=== PATIENT | female | born 1940 | race Caucasian/White ===

== ENCOUNTER 2017-08-30 10:41 | Inpatient (IN) | payer MEDICARE, BC ==
[2017-08-30] MEDS: Acetaminophen/HYDROcodone 325-10 MG Tab PO PRN ×4 (13:48→21:58)
[2017-08-30] MEDS: Magnesium Hydroxide 400 MG/5 ML Susp 30 ML Cup PO PRN (17:11)
[2017-08-30] MEDS: Rivaroxaban 10 MG Tab PO SCH (18:00)
[2017-08-30] MEDS: traMADol 50 MG Tab PO SCH (20:43)
[2017-08-30] MEDS: Gabapentin 100 MG Cap PO SCH (20:44)
[2017-08-30] MEDS: Lisinopril 20 MG Tab PO SCH (20:44)
[2017-08-30] MEDS: rOPINIRole 0.25 MG Tab PO SCH (20:45)
[2017-08-30] MEDS: Latanoprost 0.005% Ophth Soln 2.5 ML Bottle EYEBOTH SCH (20:49)
[2017-08-31] MEDS: Acetaminophen/HYDROcodone 325-10 MG Tab PO PRN ×4 (05:09→18:37)
[2017-08-31] MEDS: Omeprazole 20 MG Cap.CR PO SCH (07:55)
[2017-08-31] MEDS: Lisinopril 20 MG Tab PO SCH ×2 (08:04→20:11)
[2017-08-31] MEDS: Hydrochlorothiazide 12.5 MG Cap PO SCH (08:04)
[2017-08-31] MEDS: Calcium Citrate/Vitamin D3 315 MG-250 Unit Tab PO SCH (08:04)
[2017-08-31] MEDS: Sertraline 50 MG Tab PO SCH (08:05)
[2017-08-31] MEDS: traMADol 50 MG Tab PO SCH ×2 (08:14→20:09)
--- NOTE | 2017-08-31 09:04 | PCM.HP ---
H&P History of Present Illness - General Date of Service: 08/31/17 Admit Problem/Dx: Admission Diagnosis/Problem Admission Diagnosis/Problem Arthroplasty of knee Source of Information: Patient, Old Records, Provider, RN - History of Present Illness Initial Comments - Free Text/Narative: 76-year-old female admitted into correction facility/rehabilitation at [facility] patient is status post total left knee replacement Aug 27, 2017 Dr Ramirez orthopedic surgeon, [place]. Mitchell Agustin and did well preoperatively she did have acute on chronic flareup of her back pain postoperatively. Left Knee Pain Score (Numeric/FACES): 4 - Related Data Allergies/Adverse Reactions: Allergies Allergy/AdvReac Type Severity Reaction Status Date / Time rosuvastatin [From Crestor] Allergy Dizziness Verified 08/30/17 12:37 Sulfa (Sulfonamide Allergy Vomiting Verified 08/30/17 12:37 Antibiotics) Home Medications: Home Meds Calcium Carbonate/Vitamin D3 [Calcium 600 + Vit D 200] 1 each PO DAILY 08/30/17 [History] Ferrous Sulfate 325 mg PO DAILY 08/30/17 [History] Gabapentin [Neurontin] 100 mg PO BEDTIME 08/30/17 [History] Hydrochlorothiazide 12.5 mg PO DAILY 08/30/17 [History] Hydrocodone/Acetaminophen [Hydrocodon-Acetaminophn 10-325] 1 - 2 tab PO Q4H PRN 08/30/17 [History] Latanoprost [Xalatan] 2.5 ml EYEBOTH BEDTIME 08/30/17 [History] Lisinopril 20 mg PO BID 08/30/17 [History] Omeprazole 20 mg PO DAILY 08/30/17 [History] Rivaroxaban [Xarelto] 10 mg PO DAILY 08/30/17 [History] Sennosides/Docusate Sodium [Senna S Tablet] 2 tab PO DAILY 08/30/17 [History] Sertraline HCl [Zoloft] 100 mg PO DAILY 08/30/17 [History] rOPINIRole [Requip] 0.5 mg PO BEDTIME 08/30/17 [History] traMADol [Ultram] 50 mg PO Q12H 08/30/17 [History] Past Medical History HEENT History: Reports: Cataract, Glaucoma Cardiovascular History: Reports: Hypertension Gastrointestinal History: Reports: GERD Genitourinary History: Reports: Urinary Incontinence 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: Musculoskeletal History: Reports: Back Pain, Chronic, Osteoarthritis, Osteoporosis Psychiatric History: Reports: Depression Endocrine/Metabolic History: Reports: Osteoporosis - Infectious Disease History Infectious Disease History: Reports: Chicken Pox, Measles, Mumps, Shingles - Past Surgical History HEENT Surgical History: Reports: Cataract Surgery Cardiovascular Surgical History: Reports: None GI Surgical History: Reports: None Endocrine Surgical History: Reports: None Neurological Surgical History: Reports: Lumbar Spine Musculoskeletal Surgical History: Reports: Knee Replacement Social & Family History - Family History Cardiac: Reports: [place] Respiratory: Reports: None : Reports: Dialysis Musculoskeletal: Reports: Arthritis Neurological: Reports: None Psychiatric: Reports: None Oncologic: Reports: Metastatic, Other (See Below) Other Oncologic Family History: stomach - Tobacco Use Smoking Status *Q: Never Smoker Second Hand Smoke Exposure: No - Caffeine Use Caffeine Use: Reports: Coffee Caffeine Use Comment: one cup in the morning - Recreational Drug Use Recreational Drug Use: No H&P Review of Systems - Review of Systems: Review Of Systems: See Below General: Reports: Weakness, Other (Increased back pain since surgery, acute on chronic,). Denies: Fever, Decreased Appetite HEENT: Reports: No Symptoms Pulmonary: Reports: No Symptoms Cardiovascular: Reports: No Symptoms Gastrointestinal: Reports: Constipation Genitourinary: Reports: No Symptoms Musculoskeletal: Reports: Back Pain Skin: Reports: Wound Psychiatric: Denies: Confusion, Depression, Agitation Neurological: Reports: Pre-Existing Deficit, Difficulty Walking, Weakness, Gait Disturbance. Denies: Confusion, Dizziness, Headache, Numbness, Paresthesia, Tingling, Change in Speech Hematologic/Lymphatic: Reports: No Symptoms Immunologic: Reports: No Symptoms Exam - Exam Exam: See Below - Vital Signs Vital Signs: Last Vital Signs Temp 98.4 F 08/31/17 06:52 Pulse 85 08/31/17 06:52 Resp 20 08/31/17 06:52 BP 136/71 08/31/17 08:04 Pulse Ox 97 08/31/17 06:55 Weight: 167 lb 3.2 oz - Exam Quality Assessment: DVT Prophylaxis (Factor Xa inhibitor, stop date placed). No : Supplemental Oxygen General: Alert, Oriented, 4 HEENT: Mucosa Moist & [place] Neck: Supple, Trachea Midline, 2 Lungs: Clear to Auscultation, Normal Respiratory Effort Cardiovascular: Regular Rate, Regular Rhythm GI/Abdominal Exam: Soft, Non-Tender, No Organomegaly, No Distention, No Abnormal Bruit, Other (Decreased bowel tones). No: Normal Bowel Sounds, Distended (Female) Exam: Deferred Rectal (Female) Exam: Deferred Back Exam: Other (Back pain appears both SI right and left lower back, no dorsiflexion weakness, negative SLR bilaterally). No: CVA Tenderness (L), CVA Tenderness (R) Extremities: No Pedal Edema Peripheral Pulses: 2+: Radial (L), Radial (R) Skin: Warm, Dry, Intact, Wound, Incision Neurological: Normal Speech. No: Normal Gait Neuro Extensive - Mental Status: Alert, Oriented x3, Normal Mood/Affect, Normal Cognition, Memory Intact Neuro Extensive - Motor, Sensory, Reflexes: No: Normal Gait, Receptive Aphasia Psychiatric: Alert, Normal Affect, Normal Mood *Q Meaningful Use (ADM) - VTE *Q VTE Criteria *Q: - Stroke *Q Stroke Criteria *Q: - AMI *Q AMI Criteria *Q: Problem List Initiated/Reviewed/Updated: Yes Orders Last 24hrs: Active Orders 24 hr Category Date Time Status Patient Status [ADT] Routine ADT 08/30/17 12:03 Ordered Ambulate [RC] ASDIRECTED Care 08/30/17 12:03 Active Antiembolic Devices [RC] 0900,2100 Care 08/30/17 12:15 Active Oxygen Therapy [RC] Care 08/30/17 12:03 Active Up With Assistance [RC] ASDIRECTED Care 08/30/17 12:03 Active Vital Signs [RC] 0700,1500 Care 08/30/17 12:03 Active PT Evaluation and Treatment [CONS] Routine Cons 08/30/17 12:03 Active Regular Diet [DIET] Diet 08/30/17 Dinner Active Acetaminophen/HYDROcodone [[place] 325-10 MG] Med 08/30/17 12:52 Active 1 - 2 tab PO Q4H PRN Calcium Citrate/Vitamin D3 [Calcium Citrate + D] Med 08/31/17 09:00 Active 2 tab PO DAILY Docusate Sodium/Sennosides [Senna Plus] Med 08/31/17 09:00 Active 2 tab PO DAILY Ferrous Sulfate Med 08/31/17 12:00 Active 325 mg PO DAILY@1200 Gabapentin [Neurontin] Med 08/30/17 21:00 Active 100 mg PO BEDTIME Hydrochlorothiazide Med 08/31/17 09:00 Active 12.5 mg PO DAILY Latanoprost [Xalatan 0.005% Ophth Soln] Med 08/30/17 21:00 Active 0 ml EYEBOTH BEDTIME Lisinopril [Prinivil] Med 08/30/17 21:00 Active 20 mg PO BID Magnesium Hydroxide [Milk of Magnesia] Med 08/30/17 16:25 Active 30 ml PO BID PRN Omeprazole Med 08/31/17 07:30 Active 20 mg PO ACBREAKFAST Rivaroxaban [Xarelto] Med 08/30/17 18:00 Active 10 mg PO DAILY@1800 Sertraline [Zoloft] Med 08/31/17 09:00 Active 100 mg PO DAILY rOPINIRole [Requip] Med 08/30/17 21:00 Active 0.5 mg PO BEDTIME rOPINIRole [Requip] Med 08/30/17 14:33 Active 0.5 mg PO ONETIME PRN traMADol [Ultram] Med 08/30/17 21:00 Active 50 mg PO BID Antiembolic Hose [OM.PC] Routine Oth 08/30/17 12:03 Ordered Resuscitation Status Routine Resus Stat 08/30/17 12:03 Ordered Medication Orders Hydrocodone Bitart/Acetaminophen ([place] 325-10 Mg) 1 - 2 tab PO Q4H PRN PRN Reason: Pain Last Admin: 08/31/17 05:09 Dose: 2 tab Admin: 08/30/17 21:58 Dose: 2 tab Admin: 08/30/17 18:00 Dose: 1 tab Admin: 08/30/17 17:10 Dose: 1 tab Admin: 08/30/17 13:48 Dose: 1 tab Calcium Citrate (Calcium Citrate + D) 2 tab PO DAILY [facility] Last Admin: 08/31/17 08:04 Dose: 2 tab Ferrous Sulfate (Ferrous Sulfate) 325 mg PO DAILY@1200 [facility] Gabapentin (Neurontin) 100 mg PO BEDTIME [facility] Last Admin: 08/30/17 20:44 Dose: 100 mg Hydrochlorothiazide (Hydrochlorothiazide) 12.5 mg PO DAILY [facility] Last Admin: 08/31/17 08:04 Dose: 12.5 mg Latanoprost (Xalatan 0.005% Ophth Soln) 0 ml EYEBOTH BEDTIME [facility] Last Admin: 08/30/17 20:49 Dose: 1 drop Lisinopril (Prinivil) 20 mg PO BID [facility] Last Admin: 08/31/17 08:04 Dose: 20 mg Admin: 08/30/17 20:44 Dose: 20 mg Magnesium Hydroxide (Milk Of Magnesia) 30 ml PO BID PRN PRN Reason: Constipation Last Admin: 08/30/17 17:11 Dose: 30 ml Omeprazole (Omeprazole) 20 mg PO ACBREAKFAST [facility] Last Admin: 08/31/17 07:55 Dose: 20 mg Rivaroxaban (Xarelto) 10 mg PO DAILY@1800 [facility] Stop: 09/09/17 18:01 Last Admin: 08/30/17 18:00 Dose: 10 mg Ropinirole HCl (Requip) 0.5 mg PO BEDTIME [facility] Last Admin: 08/30/17 20:45 Dose: 0.5 mg Ropinirole HCl (Requip) 0.5 mg PO ONETIME PRN PRN Reason: restless leg Senna/Docusate Sodium (Senna Plus) 2 tab PO DAILY [facility] Last Admin: 08/31/17 08:05 Dose: 2 tab Sertraline HCl (Zoloft) 100 mg PO DAILY [facility] Last Admin: 08/31/17 08:05 Dose: 100 mg Tramadol HCl (Ultram) 50 mg PO BID [facility] Last Admin: 08/31/17 08:14 Dose: 50 mg Admin: 08/30/17 20:43 Dose: 50 mg Assessment/Plan Comment:: HISTORY OF PRESENT ILLNESS 76-year-old female admitted into correction facility/rehabilitation at [facility] patient is status post total left knee replacement Aug 27, 2017 Dr Ramirez orthopedic surgeon, [place]. Mitchell Agustin and did well preoperatively she did have acute on chronic flareup of her back pain postoperatively. Primary impression Total left knee replacement, DOS, 08/27/2017, PT consult for rehabilitation. Lower lumbar stenosis, acute on chronic, L2/L3, significantly impacting her ability to progress with PT due to pain. Spoke with orthopedics PA yesterday regarding this and it appears patient did have a flareup postoperatively. Acute on chronic. Ongoing monitoring for S/S Cauda equina symptoms. Negative SLR, no dorsiflexion weakness or radiculopathy at this time. No bladder or bowel dysfunction, Add scheduled acetaminophen, 5 mg Valium 1 time, NSAID ointment, Flexeril 5 mg by mouth 3 times a day starting at 1600 today. 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 Stop date placed. May benefit outpatient MANNY. Constipation prophylaxis, add Movantik, can change back to senna S upon reducing narcotics DVT prophylaxis, Factor Xa inhibitor. Stop date placed GI stress prophylaxis, add PPI Secondary impression HTN, essential, stable. Depression, stable, RLS, HLD, OA, shoulders, History of laminectomy.
[2017-08-31] MEDS ORDERED: Naloxegol Oxalate 25 MG Tab PO SCH (12:30)
[2017-08-31] MEDS ORDERED: Acetaminophen 650 MG Tab.ER PO SCH (12:30)
[2017-08-31] MEDS ORDERED: Diazepam 5 MG Tab PO ONE ×2 (12:30→21:31)
[2017-08-31] MEDS: Ferrous Sulfate 325 MG Tab PO SCH (13:24)
[2017-08-31] MEDS: predniSONE 20 MG Tab PO SCH (13:24)
[2017-08-31] MEDS: Cyclobenzaprine 5 MG Tab PO SCH ×2 (14:35→20:08)
[2017-08-31] MEDS: Ketoprofen 12 GM, Menthol 1.8 GM, Trolamine Salicylate/Aloe Vera 46.2 GM TOP PRN ×6 (14:38→22:43)
[2017-08-31] MEDS ORDERED: Morphine 4 MG/ML Syringe IM ONE (16:50)
[2017-08-31] MEDS: Rivaroxaban 10 MG Tab PO SCH (18:34)
[2017-08-31] MEDS: Gabapentin 100 MG Cap PO SCH (20:09)
[2017-08-31] MEDS: rOPINIRole 0.25 MG Tab PO SCH (20:09)
[2017-08-31] MEDS: Latanoprost 0.005% Ophth Soln 2.5 ML Bottle EYEBOTH SCH (20:11)
[2017-08-31] MEDS: oxyCODONE 5 MG Tab PO PRN (22:42)
[2017-09-01] MEDS: oxyCODONE 5 MG Tab PO PRN ×4 (04:01→23:38)
[2017-09-01] MEDS: Acetaminophen 650 MG Tab.ER PO SCH ×4 (06:11→22:06)
[2017-09-01] MEDS: Omeprazole 20 MG Cap.CR PO SCH (08:26)
[2017-09-01] MEDS: predniSONE 20 MG Tab PO SCH (08:27)
[2017-09-01] MEDS: Calcium Citrate/Vitamin D3 315 MG-250 Unit Tab PO SCH (08:31)
[2017-09-01] MEDS: Cyclobenzaprine 5 MG Tab PO SCH ×3 (08:32→20:29)
[2017-09-01] MEDS: Hydrochlorothiazide 12.5 MG Cap PO SCH (08:32)
[2017-09-01] MEDS: Sertraline 50 MG Tab PO SCH (08:33)
[2017-09-01] MEDS: traMADol 50 MG Tab PO SCH ×2 (08:38→20:30)
[2017-09-01] MEDS: Lisinopril 20 MG Tab PO SCH ×2 (08:39→20:33)
--- NOTE | 2017-09-01 11:37 | PCM.PN ---
- General Info Date of Service: 09/01/17 - Patient Data Vitals - Most Recent: Last Vital Signs Temp 37.0 C 09/01/17 06:17 Pulse 87 09/01/17 06:17 Resp 20 09/01/17 06:17 BP 140/86 09/01/17 08:39 Pulse Ox 96 09/01/17 06:17 Weight - Most Recent: 75.841 kg I&O - Last 24 Hours: Intake & Output 08/31/17 09/01/17 09/01/17 22:59 06:59 14:59 Intake Total 620 150 Output Total 1160 Balance 620 -1010 Lab Results Last 24 Hours: Laboratory Results - last 24 hr 08/31/17 09/01/17 Range/Units 23:00 07:30 WBC 7.8 (5.0-10.0) 10^3/uL RBC 2.77 L (3.80-5.50) 10^6/uL Hgb 7.6 L (12.0-16.0) g/dL Hct 24.2 L (37.0-47.0) % MCV 87.2 (82.0-92.0) fL MCH 27.5 (27.0-31.0) pg MCHC 31.5 L (32.0-36.0) g/dL RDW 13.2 (11.5-14.5) % Plt Count 211 (150-300) 10^3/uL MPV 9.0 (7.4-10.4) fL Specimen Type Urinqcath Urine Color Yellow (YELLOW) Urine Appearance Clear (CLEAR) Urine pH 5.5 (5.0-9.0) Ur Specific Bunch 1.015 (1.005-1.030) Urine Protein Negative (NEGATIVE) mg/dL Urine Glucose (UA) 250 H (NEGATIVE) mg/dL Urine Ketones Negative (NEGATIVE) mg/dL Urine Occult Blood Negative (NEGATIVE) Urine Nitrite Negative (NEGATIVE) Urine Bilirubin Negative (NEGATIVE) Urine Urobilinogen 0.2 (0.2-1.0) E.U./dL Ur Leukocyte Esterase Negative (NEGATIVE) Urine RBC 0-5 /HPF Urine WBC 0-5 /HPF Ur Epithelial Cells Few /LPF Urine Bacteria Few (NONE TO FEW) /HPF Med Orders - Current: Current Medications Acetaminophen (Tylenol Arthritis Pain) 650 mg PO Q6HR [facility] Last Admin: 09/01/17 10:53 Dose: 650 mg Calcium Citrate (Calcium Citrate + D) 2 tab PO DAILY [facility] Last Admin: 09/01/17 08:31 Dose: 2 tab Ketoprofen 12 gm/ Menthol 1.8 gm/ Trolamine Salicylate 46.2 gm 0 gm TOP Q6HR PRN PRN Reason: back pain Last Admin: 08/31/17 22:43 Dose: 1 tim Cyclobenzaprine HCl (Flexeril) 5 mg PO TID [facility] Stop: 09/03/17 09:01 Last Admin: 09/01/17 08:32 Dose: 5 mg Ferrous Sulfate (Ferrous Sulfate) 325 mg PO DAILY@1200 [facility] Last Admin: 08/31/17 13:24 Dose: 325 mg Gabapentin (Neurontin) 100 mg PO BEDTIME [facility] Last Admin: 08/31/17 20:09 Dose: 100 mg Hydrochlorothiazide (Hydrochlorothiazide) 12.5 mg PO DAILY [facility] Last Admin: 09/01/17 08:32 Dose: 12.5 mg Latanoprost (Xalatan 0.005% Ophth Soln) 0 ml EYEBOTH BEDTIME [facility] Last Admin: 08/31/17 20:11 Dose: 1 drop Lisinopril (Prinivil) 20 mg PO BID [facility] Last Admin: 09/01/17 08:39 Dose: 20 mg Magnesium Hydroxide (Milk Of Magnesia) 30 ml PO BID PRN PRN Reason: Constipation Last Admin: 08/30/17 17:11 Dose: 30 ml Omeprazole (Omeprazole) 20 mg PO ACBREAKFAST [facility] Last Admin: 09/01/17 08:26 Dose: 20 mg Oxycodone HCl (Oxycodone) 5 - 15 mg PO Q4H PRN PRN Reason: Pain Last Admin: 09/01/17 04:01 Dose: 10 mg Rivaroxaban (Xarelto) 10 mg PO DAILY@1800 [facility] Stop: 09/09/17 18:01 Last Admin: 08/31/17 18:34 Dose: 10 mg Ropinirole HCl (Requip) 0.5 mg PO BEDTIME [facility] Last Admin: 08/31/17 20:09 Dose: 0.5 mg Ropinirole HCl (Requip) 0.5 mg PO ONETIME PRN PRN Reason: restless leg Senna/Docusate Sodium (Senna Plus) 2 tab PO DAILY [facility] Last Admin: 09/01/17 09:20 Dose: 2 tab Sertraline HCl (Zoloft) 100 mg PO DAILY [facility] Last Admin: 09/01/17 08:33 Dose: 100 mg Tramadol HCl (Ultram) 50 mg PO BID [facility] Last Admin: 09/01/17 08:38 Dose: 50 mg Discontinued Medications Acetaminophen (Tylenol Arthritis Pain) 650 mg PO Q8HR [facility] Last Admin: 08/31/17 14:30 Dose: Not Given Hydrocodone Bitart/Acetaminophen ([place] 325-10 Mg) 1 - 2 tab PO Q4H PRN PRN Reason: Pain Last Admin: 08/31/17 18:37 Dose: 2 tab Diazepam (Valium.) 5 mg PO ONETIME ONE Stop: 08/31/17 12:31 Last Admin: 08/31/17 13:24 Dose: 5 mg Diazepam (Valium.) 5 mg PO ONETIME ONE Stop: 08/31/17 21:32 Last Admin: 08/31/17 21:52 Dose: 5 mg Morphine Sulfate (Morphine) 4 mg IM ONETIME ONE Stop: 08/31/17 16:51 Last Admin: 08/31/17 17:16 Dose: 4 mg Prednisone (Prednisone) 40 mg PO WITHBREAKFAST [facility] Stop: 09/02/17 12:31 Last Admin: 09/01/17 08:27 Dose: 40 mg - My Orders Last 24 Hours: My Active Orders 08/31/17 21:25 oxyCODONE 5 - 15 mg PO Q4H PRN 08/31/17 23:00 CULTURE URINE [RM] Routine 09/01/17 06:00 Acetaminophen [Tylenol Arthritis Pain] 650 mg PO Q6HR 09/02/17 05:11 HEMOGLOBIN/HEMATOCRIT,HH [HEME] AM - Plan Plan:: HISTORY OF PRESENT ILLNESS 76-year-old female admitted into correction facility/rehabilitation at [facility] patient is status post total left knee replacement Aug 27, 2017 Dr Ramirez orthopedic surgeon, [place]. Mitchell Agustin and did well preoperatively she did have acute on chronic flareup of her back pain postoperatively. Primary impression Total left knee replacement, DOS, 08/27/2017, PT consult for rehabilitation. Lower lumbar stenosis, acute on chronic, L2/L3, significantly impacting her ability to progress with PT due to pain. Spoke with orthopedics PA yesterday regarding this and it appears patient did have a flareup postoperatively. Acute on chronic. Ongoing monitoring for S/S Cauda equina symptoms. Negative SLR, no dorsiflexion weakness or radiculopathy at this time. No bladder or bowel dysfunction, Add scheduled acetaminophen, 5 mg Valium 1 time, NSAID ointment, Flexeril 5 mg by mouth 3 times a day starting at 1600 today. 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 Stop date placed. May benefit outpatient MANNY. Constipation prophylaxis, add Movantik, can change back to senna S upon reducing narcotics DVT prophylaxis, Factor Xa inhibitor. Stop date placed GI stress prophylaxis, add PPI Secondary impression HTN, essential, stable. Depression, stable, RLS, HLD, OA, shoulders, History of laminectomy.
[2017-09-01] MEDS: Ferrous Sulfate 325 MG Tab PO SCH (12:00)
[2017-09-01] MEDS: Ketoprofen 12 GM, Menthol 1.8 GM, Trolamine Salicylate/Aloe Vera 46.2 GM TOP PRN ×6 (13:58→22:07)
[2017-09-01] MEDS: Rivaroxaban 10 MG Tab PO SCH (18:21)
[2017-09-01] MEDS: rOPINIRole 0.25 MG Tab PO SCH (20:29)
[2017-09-01] MEDS: Gabapentin 100 MG Cap PO SCH (20:29)
[2017-09-01] MEDS: Latanoprost 0.005% Ophth Soln 2.5 ML Bottle EYEBOTH SCH (20:30)
[2017-09-02] MEDS: Acetaminophen 650 MG Tab.ER PO SCH ×4 (05:38→23:50)
[2017-09-02] MEDS: Omeprazole 20 MG Cap.CR PO SCH (07:49)
[2017-09-02] MEDS: Cyclobenzaprine 5 MG Tab PO SCH ×3 (08:35→20:33)
[2017-09-02] MEDS: traMADol 50 MG Tab PO SCH ×2 (08:35→20:34)
[2017-09-02] MEDS: Lisinopril 20 MG Tab PO SCH ×2 (08:36→20:33)
[2017-09-02] MEDS: Hydrochlorothiazide 12.5 MG Cap PO SCH (08:36)
[2017-09-02] MEDS: Sertraline 50 MG Tab PO SCH (08:37)
[2017-09-02] MEDS: Calcium Citrate/Vitamin D3 315 MG-250 Unit Tab PO SCH (08:37)
[2017-09-02] MEDS: Ferrous Sulfate 325 MG Tab PO SCH (11:55)
[2017-09-02] MEDS: oxyCODONE 5 MG Tab PO PRN ×2 (14:29→19:43)
[2017-09-02] MEDS: Gabapentin 100 MG Cap PO SCH ×2 (14:29→20:33)
[2017-09-02] MEDS: Rivaroxaban 10 MG Tab PO SCH (17:22)
[2017-09-02] MEDS: rOPINIRole 0.25 MG Tab PO PRN (17:22)
[2017-09-02] MEDS: Melatonin 3 MG Tab PO SCH (20:33)
[2017-09-02] MEDS: rOPINIRole 0.25 MG Tab PO SCH (20:34)
[2017-09-02] MEDS: Latanoprost 0.005% Ophth Soln 2.5 ML Bottle EYEBOTH SCH (20:36)
[2017-09-03] MEDS: oxyCODONE 5 MG Tab PO PRN ×5 (00:09→21:41)
[2017-09-03] MEDS: Acetaminophen 650 MG Tab.ER PO SCH ×5 (05:30→22:26)
[2017-09-03] MEDS: rOPINIRole 0.25 MG Tab PO PRN (06:17)
[2017-09-03] MEDS: Omeprazole 20 MG Cap.CR PO SCH (07:37)
[2017-09-03] MEDS: Calcium Citrate/Vitamin D3 315 MG-250 Unit Tab PO SCH (08:36)
[2017-09-03] MEDS: Hydrochlorothiazide 12.5 MG Cap PO SCH (08:37)
[2017-09-03] MEDS: traMADol 50 MG Tab PO SCH ×2 (08:37→20:40)
[2017-09-03] MEDS: Gabapentin 100 MG Cap PO SCH ×3 (08:37→20:40)
[2017-09-03] MEDS: Cyclobenzaprine 5 MG Tab PO SCH (08:37)
[2017-09-03] MEDS: Sertraline 50 MG Tab PO SCH (08:37)
[2017-09-03] MEDS: Lisinopril 20 MG Tab PO SCH ×2 (08:39→20:39)
[2017-09-03] MEDS: Ferrous Sulfate 325 MG Tab PO SCH (11:40)
[2017-09-03] MEDS: Ketoprofen 12 GM, Menthol 1.8 GM, Trolamine Salicylate/Aloe Vera 46.2 GM TOP PRN ×6 (11:42→20:37)
[2017-09-03] MEDS: Magnesium Hydroxide 400 MG/5 ML Susp 30 ML Cup PO PRN (16:33)
[2017-09-03] MEDS: Rivaroxaban 10 MG Tab PO SCH (17:25)
[2017-09-03] MEDS: rOPINIRole 0.25 MG Tab PO SCH (20:40)
[2017-09-03] MEDS: Melatonin 3 MG Tab PO SCH (20:40)
[2017-09-03] MEDS: Latanoprost 0.005% Ophth Soln 2.5 ML Bottle EYEBOTH SCH (20:40)
[2017-09-04] MEDS: Acetaminophen 650 MG Tab.ER PO SCH ×4 (05:57→23:03)
[2017-09-04] MEDS: oxyCODONE 5 MG Tab PO PRN ×3 (06:32→19:27)
[2017-09-04] MEDS: Omeprazole 20 MG Cap.CR PO SCH (07:40)
[2017-09-04] MEDS: Calcium Citrate/Vitamin D3 315 MG-250 Unit Tab PO SCH (08:52)
[2017-09-04] MEDS: Hydrochlorothiazide 12.5 MG Cap PO SCH (08:52)
[2017-09-04] MEDS: Lisinopril 20 MG Tab PO SCH ×2 (08:52→21:06)
[2017-09-04] MEDS: Gabapentin 100 MG Cap PO SCH ×3 (08:52→21:08)
[2017-09-04] MEDS: Sertraline 50 MG Tab PO SCH (08:53)
[2017-09-04] MEDS: Ketoprofen 12 GM, Menthol 1.8 GM, Trolamine Salicylate/Aloe Vera 46.2 GM TOP PRN ×6 (08:54→17:30)
[2017-09-04] MEDS: traMADol 50 MG Tab PO SCH ×2 (09:00→21:06)
[2017-09-04] MEDS: Ferrous Sulfate 325 MG Tab PO SCH (12:31)
[2017-09-04] MEDS: Bisacodyl 10 MG Supp RECTAL PRN (15:31)
[2017-09-04] MEDS: rOPINIRole 0.25 MG Tab PO PRN (17:28)
[2017-09-04] MEDS: Rivaroxaban 10 MG Tab PO SCH (17:28)
[2017-09-04] MEDS: rOPINIRole 0.25 MG Tab PO SCH (21:05)
[2017-09-04] MEDS: Melatonin 3 MG Tab PO SCH (21:08)
[2017-09-04] MEDS: Latanoprost 0.005% Ophth Soln 2.5 ML Bottle EYEBOTH SCH (21:11)
[2017-09-05] MEDS: Acetaminophen 650 MG Tab.ER PO SCH ×4 (04:43→22:17)
[2017-09-05] MEDS: oxyCODONE 5 MG Tab PO PRN ×2 (06:32→13:08)
[2017-09-05] MEDS: Omeprazole 20 MG Cap.CR PO SCH (07:49)
[2017-09-05] MEDS: Calcium Citrate/Vitamin D3 315 MG-250 Unit Tab PO SCH (08:06)
[2017-09-05] MEDS: Gabapentin 100 MG Cap PO SCH ×3 (08:06→20:24)
[2017-09-05] MEDS: Sertraline 50 MG Tab PO SCH (08:07)
[2017-09-05] MEDS: Lisinopril 20 MG Tab PO SCH ×2 (08:08→20:24)
[2017-09-05] MEDS: Hydrochlorothiazide 12.5 MG Cap PO SCH (08:09)
[2017-09-05] MEDS: traMADol 50 MG Tab PO SCH ×2 (08:14→20:24)
--- NOTE | 2017-09-05 09:30 | PCM.PN ---
- General Info Date of Service: 09/05/17 Functional Status: Reports: Pain Controlled (Much better pain control), Tolerating Diet, Ambulating, Urinating (Catheter removed this morning. ), Incentive Spirometry. Denies: New Symptoms - Review of Systems General: Denies: Fever, Weakness, Fatigue HEENT: Reports: No Symptoms Pulmonary: Reports: No Symptoms Cardiovascular: Reports: No Symptoms Gastrointestinal: Denies: Abdominal Pain, Constipation, Decreased Appetite, Nausea Genitourinary: Reports: Other (Indwelling Hernandez catheter removed this morning) Musculoskeletal: Reports: Joint Pain, Joint Swelling (Left knee pain however much improved). Denies: Back Pain Skin: Reports: Bruising (Bruising left knee surrounding by an calf) Neurological: Reports: Difficulty Walking, Gait Disturbance. Denies: Numbness Psychiatric: Reports: No Symptoms - Patient Data Vitals - Most Recent: Last Vital Signs Temp 98.2 F 09/05/17 06:50 Pulse 90 09/05/17 06:50 Resp 20 09/05/17 06:50 BP 133/85 09/05/17 08:08 Pulse Ox 93 L 09/05/17 06:50 Weight - Most Recent: 167 lb 3.2 oz I&O - Last 24 Hours: Intake & Output 09/04/17 09/05/17 09/05/17 22:59 06:59 14:59 Intake Total 620 150 Output Total 775 600 Balance -155 -450 Med Orders - Current: Current Medications Acetaminophen (Tylenol Arthritis Pain) 650 mg PO Q6HR [facility] Last Admin: 09/05/17 04:43 Dose: 650 mg Bisacodyl (Dulcolax) 10 mg RECTAL DAILY PRN PRN Reason: Constipation Last Admin: 09/04/17 15:31 Dose: 10 mg Calcium Citrate (Calcium Citrate + D) 2 tab PO DAILY [facility] Last Admin: 09/05/17 08:06 Dose: 2 tab Ketoprofen 12 gm/ Menthol 1.8 gm/ Trolamine Salicylate 46.2 gm 0 gm TOP Q6HR PRN PRN Reason: back pain Last Admin: 09/04/17 17:30 Dose: 1 tim Ferrous Sulfate (Ferrous Sulfate) 325 mg PO DAILY@1200 [facility] Last Admin: 09/04/17 12:31 Dose: 325 mg Gabapentin (Neurontin) 100 mg PO TID [facility] Last Admin: 09/05/17 08:06 Dose: 100 mg Hydrochlorothiazide (Hydrochlorothiazide) 12.5 mg PO DAILY [facility] Last Admin: 09/05/17 08:09 Dose: 12.5 mg Latanoprost (Xalatan 0.005% Ophth Soln) 0 ml EYEBOTH BEDTIME [facility] Last Admin: 09/04/17 21:11 Dose: 1 drop Lisinopril (Prinivil) 20 mg PO BID [facility] Last Admin: 09/05/17 08:08 Dose: 20 mg Magnesium Hydroxide (Milk Of Magnesia) 30 ml PO BID PRN PRN Reason: Constipation Last Admin: 09/03/17 16:33 Dose: 30 ml Melatonin (Melatonin) 3 mg PO BEDTIME [facility] Last Admin: 09/04/17 21:08 Dose: 3 mg Omeprazole (Omeprazole) 20 mg PO ACBREAKFAST [facility] Last Admin: 09/05/17 07:49 Dose: 20 mg Oxycodone HCl (Oxycodone) 5 - 15 mg PO Q4H PRN PRN Reason: Pain Last Admin: 09/05/17 06:32 Dose: 5 mg Rivaroxaban (Xarelto) 10 mg PO DAILY@1800 [facility] Stop: 09/09/17 18:01 Last Admin: 09/04/17 17:28 Dose: 10 mg Ropinirole HCl (Requip) 0.5 mg PO BEDTIME [facility] Last Admin: 09/04/17 21:05 Dose: 0.5 mg Ropinirole HCl (Requip) 0.5 mg PO ONETIME PRN PRN Reason: restless leg Last Admin: 09/04/17 17:28 Dose: 0.5 mg Senna/Docusate Sodium (Senna Plus) 2 tab PO DAILY [facility] Last Admin: 09/05/17 08:07 Dose: 2 tab Sertraline HCl (Zoloft) 100 mg PO DAILY [facility] Last Admin: 09/05/17 08:07 Dose: 100 mg Tramadol HCl (Ultram) 50 mg PO BID [facility] Last Admin: 09/05/17 08:14 Dose: 50 mg Discontinued Medications Acetaminophen (Tylenol Arthritis Pain) 650 mg PO Q8HR [facility] Last Admin: 08/31/17 14:30 Dose: Not Given Hydrocodone Bitart/Acetaminophen ([place] 325-10 Mg) 1 - 2 tab PO Q4H PRN PRN Reason: Pain Last Admin: 08/31/17 18:37 Dose: 2 tab Cyclobenzaprine HCl (Flexeril) 5 mg PO TID [facility] Stop: 09/03/17 09:01 Last Admin: 09/03/17 08:37 Dose: 5 mg Diazepam (Valium.) 5 mg PO ONETIME ONE Stop: 08/31/17 12:31 Last Admin: 08/31/17 13:24 Dose: 5 mg Diazepam (Valium.) 5 mg PO ONETIME ONE Stop: 08/31/17 21:32 Last Admin: 08/31/17 21:52 Dose: 5 mg Gabapentin (Neurontin) 100 mg PO BEDTIME [facility] Last Admin: 09/01/17 20:29 Dose: 100 mg Morphine Sulfate (Morphine) 4 mg IM ONETIME ONE Stop: 08/31/17 16:51 Last Admin: 08/31/17 17:16 Dose: 4 mg Prednisone (Prednisone) 40 mg PO WITHBREAKFAST [facility] Stop: 09/02/17 12:31 Last Admin: 09/01/17 08:27 Dose: 40 mg - Exam Quality Assessment: No: Supplemental Oxygen General: Alert, Oriented, Cooperative Neck: Supple Cardiovascular: Regular Rate, Tachycardia GI/Abdominal Exam: Soft, Other (Slightly decreased bowel tones). No: Distended , Guarding (Female) Exam: Deferred Extremities: Other (Left knee, [place] intact, generalized swelling, bruising left lower extremity since surgery, on factor X inhibitor). No: Increased Warmth, Redness Skin: Warm, Dry, Intact Wound/Incisions: Healing Well, No Drainage Neurological: Normal Speech. No: Normal Gait Psy/Mental Status: Alert, Normal Affect, Normal Mood - Problem List Review Problem List Initiated/Reviewed/Updated: Yes - My Orders Last 24 Hours: My Active Orders 09/04/17 23:30 DC Hernandez Catheter [Urinary Catheter Removal] [RC] Per Unit Routine - Plan Plan:: HISTORY OF PRESENT ILLNESS 76-year-old female admitted into intermediate facility/rehabilitation at [facility] patient is status post total left knee replacement Aug 27, 2017 Dr Ramirez orthopedic surgeon, [place]. Mitchell Agustin and did well preoperatively she did have acute on chronic flareup of her back pain postoperatively. Primary impression Total left knee replacement, DOS, 08/27/2017, doing well in physical therapy. Follow-up schedule, staple removal in future. Acute urinary retention, Hernandez catheter removed, we'll see how she does with trial Lower back pain, much improved, on admission patient had acute on chronic, L2/L3 , significantly impacting her ability to progress with PT due to pain. MME past 24 hours. Constipation prophylaxis, senna S DVT prophylaxis, Factor Xa inhibitor. Stop date placed GI stress prophylaxis, add PPI Secondary impression HTN, essential, stable. Depression, stable, RLS, HLD, OA, shoulders, History of laminectomy.
[2017-09-05] MEDS: Ferrous Sulfate 325 MG Tab PO SCH (13:07)
[2017-09-05] MEDS: Ketoprofen 12 GM, Menthol 1.8 GM, Trolamine Salicylate/Aloe Vera 46.2 GM TOP PRN ×3 (16:16)
[2017-09-05] MEDS: Rivaroxaban 10 MG Tab PO SCH (18:11)
[2017-09-05] MEDS: rOPINIRole 0.25 MG Tab PO SCH ×2 (19:48→20:24)
[2017-09-05] MEDS: Melatonin 3 MG Tab PO SCH (20:23)
[2017-09-05] MEDS: Latanoprost 0.005% Ophth Soln 2.5 ML Bottle EYEBOTH SCH (20:24)
[2017-09-05] MEDS: rOPINIRole 0.25 MG Tab PO PRN (22:19)
[2017-09-06] MEDS: oxyCODONE 5 MG Tab PO PRN ×4 (01:30→19:18)
[2017-09-06] MEDS: Acetaminophen 650 MG Tab.ER PO SCH ×4 (05:12→22:42)
[2017-09-06] MEDS: Omeprazole 20 MG Cap.CR PO SCH (08:25)
[2017-09-06] MEDS: Calcium Citrate/Vitamin D3 315 MG-250 Unit Tab PO SCH (08:26)
[2017-09-06] MEDS: Gabapentin 100 MG Cap PO SCH ×3 (08:27→20:27)
[2017-09-06] MEDS: Hydrochlorothiazide 12.5 MG Cap PO SCH (08:27)
[2017-09-06] MEDS: Sertraline 50 MG Tab PO SCH (08:28)
[2017-09-06] MEDS: Lisinopril 20 MG Tab PO SCH ×2 (08:28→20:27)
[2017-09-06] MEDS: traMADol 50 MG Tab PO SCH ×2 (08:32→20:26)
[2017-09-06] MEDS: Ferrous Sulfate 325 MG Tab PO SCH (12:02)
[2017-09-06] MEDS: Rivaroxaban 10 MG Tab PO SCH (17:17)
[2017-09-06] MEDS: Melatonin 3 MG Tab PO SCH (20:27)
[2017-09-06] MEDS: rOPINIRole 0.25 MG Tab PO SCH (20:27)
[2017-09-06] MEDS: Latanoprost 0.005% Ophth Soln 2.5 ML Bottle EYEBOTH SCH (20:27)
[2017-09-07] MEDS: oxyCODONE 5 MG Tab PO PRN ×4 (00:46→19:57)
[2017-09-07] MEDS: Acetaminophen 650 MG Tab.ER PO SCH ×4 (06:00→22:11)
[2017-09-07] MEDS: traMADol 50 MG Tab PO SCH ×2 (08:04→20:09)
[2017-09-07] MEDS: Hydrochlorothiazide 12.5 MG Cap PO SCH (08:05)
[2017-09-07] MEDS: Calcium Citrate/Vitamin D3 315 MG-250 Unit Tab PO SCH (08:05)
[2017-09-07] MEDS: Omeprazole 20 MG Cap.CR PO SCH (08:05)
[2017-09-07] MEDS: Gabapentin 100 MG Cap PO SCH ×3 (08:05→20:03)
[2017-09-07] MEDS: Sertraline 50 MG Tab PO SCH (08:06)
[2017-09-07] MEDS: Lisinopril 20 MG Tab PO SCH ×2 (08:08→20:03)
[2017-09-07] MEDS: Ferrous Sulfate 325 MG Tab PO SCH (12:06)
[2017-09-07] MEDS: rOPINIRole 0.25 MG Tab PO PRN (15:45)
[2017-09-07] MEDS: Rivaroxaban 10 MG Tab PO SCH (18:13)
[2017-09-07] MEDS: Melatonin 3 MG Tab PO SCH (20:03)
[2017-09-07] MEDS: rOPINIRole 0.25 MG Tab PO SCH (20:06)
[2017-09-07] MEDS: Latanoprost 0.005% Ophth Soln 2.5 ML Bottle EYEBOTH SCH (20:10)
[2017-09-08] MEDS: oxyCODONE 5 MG Tab PO PRN ×3 (01:57→22:07)
[2017-09-08] MEDS: Magnesium Hydroxide 400 MG/5 ML Susp 30 ML Cup PO PRN ×2 (01:59→18:13)
[2017-09-08] MEDS: Acetaminophen 650 MG Tab.ER PO SCH ×4 (06:54→22:02)
[2017-09-08] MEDS: Omeprazole 20 MG Cap.CR PO SCH (07:51)
[2017-09-08] MEDS: Sertraline 50 MG Tab PO SCH (08:36)
[2017-09-08] MEDS: Gabapentin 100 MG Cap PO SCH ×3 (08:36→20:07)
[2017-09-08] MEDS: Calcium Citrate/Vitamin D3 315 MG-250 Unit Tab PO SCH (08:37)
[2017-09-08] MEDS: Hydrochlorothiazide 12.5 MG Cap PO SCH (08:38)
[2017-09-08] MEDS: Lisinopril 20 MG Tab PO SCH ×2 (08:39→20:08)
[2017-09-08] MEDS: traMADol 50 MG Tab PO SCH ×3 (08:45→19:46)
[2017-09-08] MEDS: Ferrous Sulfate 325 MG Tab PO SCH (11:59)
[2017-09-08] MEDS: Bisacodyl 10 MG Supp RECTAL PRN (15:45)
[2017-09-08] MEDS: Rivaroxaban 10 MG Tab PO SCH (18:13)
[2017-09-08] MEDS: Melatonin 3 MG Tab PO SCH (20:06)
[2017-09-08] MEDS: rOPINIRole 0.25 MG Tab PO SCH (20:07)
[2017-09-08] MEDS: Latanoprost 0.005% Ophth Soln 2.5 ML Bottle EYEBOTH SCH (20:08)
[2017-09-08] MEDS: Ketoprofen 12 GM, Menthol 1.8 GM, Trolamine Salicylate/Aloe Vera 46.2 GM TOP PRN ×3 (20:09)
[2017-09-09] MEDS: traMADol 50 MG Tab PO SCH ×5 (03:25→23:43)
[2017-09-09] MEDS: Acetaminophen 650 MG Tab.ER PO SCH ×4 (06:13→23:43)
[2017-09-09] MEDS: Omeprazole 20 MG Cap.CR PO SCH (07:38)
[2017-09-09] MEDS: Calcium Citrate/Vitamin D3 315 MG-250 Unit Tab PO SCH (10:03)
[2017-09-09] MEDS: Gabapentin 100 MG Cap PO SCH ×3 (10:04→20:16)
[2017-09-09] MEDS: Lisinopril 20 MG Tab PO SCH ×2 (10:04→20:17)
[2017-09-09] MEDS: Hydrochlorothiazide 12.5 MG Cap PO SCH (10:04)
[2017-09-09] MEDS: Sertraline 50 MG Tab PO SCH (10:15)
[2017-09-09] MEDS: oxyCODONE 5 MG Tab PO PRN ×2 (10:18→20:21)
[2017-09-09] MEDS: Ferrous Sulfate 325 MG Tab PO SCH (12:08)
[2017-09-09] MEDS: Polyethylene Glycol 3350 Powder 17 GM Packet PO SCH (12:12)
[2017-09-09] MEDS: Phenazopyridine 100 MG Tab PO PRN ×2 (12:23→20:23)
[2017-09-09] MEDS: cefTRIAXone 1 GM Vial IVPUSH SCH (12:24)
[2017-09-09] MEDS: rOPINIRole 0.25 MG Tab PO PRN (13:49)
[2017-09-09] MEDS: Rivaroxaban 10 MG Tab PO SCH (17:40)
[2017-09-09] MEDS: Melatonin 3 MG Tab PO SCH (20:16)
[2017-09-09] MEDS: rOPINIRole 0.25 MG Tab PO SCH (20:17)
[2017-09-09] MEDS: Latanoprost 0.005% Ophth Soln 2.5 ML Bottle EYEBOTH SCH (20:18)
[2017-09-10] MEDS: Acetaminophen 650 MG Tab.ER PO SCH ×4 (04:45→23:08)
[2017-09-10] MEDS: oxyCODONE 5 MG Tab PO PRN (04:45)
[2017-09-10] MEDS: traMADol 50 MG Tab PO SCH ×4 (06:21→23:08)
[2017-09-10] MEDS: Omeprazole 20 MG Cap.CR PO SCH (07:57)
[2017-09-10] MEDS: Calcium Citrate/Vitamin D3 315 MG-250 Unit Tab PO SCH (09:23)
[2017-09-10] MEDS: Lisinopril 20 MG Tab PO SCH ×2 (09:25→20:20)
[2017-09-10] MEDS: Hydrochlorothiazide 12.5 MG Cap PO SCH (09:26)
[2017-09-10] MEDS: Gabapentin 100 MG Cap PO SCH ×3 (09:27→20:20)
[2017-09-10] MEDS: Sertraline 50 MG Tab PO SCH (09:28)
[2017-09-10] MEDS: Polyethylene Glycol 3350 Powder 17 GM Packet PO SCH (09:38)
[2017-09-10] MEDS: Phenazopyridine 100 MG Tab PO PRN (09:39)
--- NOTE | 2017-09-10 10:57 | PN ---
09/10/2017 PATIENT NAME: RORO RUSSELL SUBJECTIVE: This is a 77-year-old female patient who underwent a left total knee replacement by Dr. Ramirez back on August 27. She was sent here for swing bed and rehabilitation. Today, she states that her pain is much better. She says her back pain is better today. She says her bruising to her left knee is much better than it is. She says the knee is doing okay with therapy. She says she is scheduled for physical therapy this morning at 10:00 a.m. She says as far as her knee, the knee has been doing really well. She has been having some low back pain, but she thinks that may be from her bladder infection that she has. She says her appetite has been fine. OBJECTIVE: VITAL SIGNS: Today, temperature is 99.5, pulse is 89, blood pressure is 152/87, respiratory rate is 20, oxygen saturations are 95% on room air. GENERAL: This is an elderly white female in no acute distress. LUNGS: Sounds are clear in upper lobes, slightly diminished at bilateral bases. ABDOMEN: Soft, nontender, nondistended. Bowel sounds present x4. HEART: Tones are regular rate and rhythm. No murmurs identified. EXTREMITIES: The patient does have some bruising to her left knee area and left lower leg, seems to be improving. There is no erythema or warmth to the touch. Knee is slightly swollen. Sanger are intact. LABORATORY DATA: The patient did not have any lab work drawn today. The patient's urinalysis from yesterday showed many bacteria. IMPRESSION AND PLAN: 1. Left total knee replacement. Plan, the patient had her left total knee done by Dr. Ramirez back on the 27 of August. She has been doing well. Maddi are intact. She does have appointment on Sunday with Dr. Ramirez. Due to weather, we may just remove the maddi here and cancel her appointment. She has a physical therapy this morning at 10:00 a.m. She does have many medications for pain. 2. Urinary tract infection with urinary retention. Plan, the patient's Hernandez catheter was discontinued yesterday. The patient is on Urecholine 10 mg twice a day for urinary retention. The patient's urinalysis yesterday showed many bacteria. The patient was started on Rocephin 1 g IV daily. She has been afebrile. She does have some Pyridium, she can have every 8 hours 200 mg as needed for burning with urination. She says she feels better today. 3. Constipation. Plan, we are going to continue with MiraLAX 17 g daily. She does have milk of magnesia that she can have as needed. We will also continue with Susan-Colace two tabs daily. She also has a Dulcolax suppository she can have as needed for constipation. 4. Anemia. Plan, continue with ferrous sulfate 325 mg daily. Her last hemoglobin was stable at 8.7. We will recheck that here in a few days to see how it is improving. 5. Pain. Plan, continue with gabapentin 100 mg three times a day along with tramadol 50 mg every 6 hours scheduled. She also does have some oxycodone that she can have every 4 hours for pain. She also has some Dr. Armstrong's analgesic rub that she can have as needed for pain. She can have Tylenol as needed for pain. 6. Hypertension. Plan, the patient's blood pressures have been well controlled. We will continue with HCTZ 12.5 mg daily along with lisinopril 20 mg twice a day. 7. Insomnia. Plan, continue with melatonin 3 mg at bedtime. 8. History of gastroesophageal reflux disease. Plan, continue with omeprazole 20 mg daily in the morning prior to breakfast. 9. History of restless legs syndrome. Plan, continue with Requip 0.5 mg at bedtime. 10.History of depression. Plan, continue with Zoloft 100 mg daily. OVERALL PLAN: The patient seems to be improving. She does have a urinary tract infection that were treated at this time. We will continue to have her work with physical therapy. /[id number]/MODL
[2017-09-10] MEDS: cefTRIAXone 1 GM Vial IVPUSH SCH (11:51)
[2017-09-10] MEDS: Ferrous Sulfate 325 MG Tab PO SCH (11:52)
[2017-09-10] MEDS: rOPINIRole 0.25 MG Tab PO PRN (15:17)
[2017-09-10] MEDS: Magnesium Hydroxide 400 MG/5 ML Susp 30 ML Cup PO PRN (16:18)
[2017-09-10] MEDS: Latanoprost 0.005% Ophth Soln 2.5 ML Bottle EYEBOTH SCH (20:19)
[2017-09-10] MEDS: Melatonin 3 MG Tab PO SCH (20:20)
[2017-09-10] MEDS: rOPINIRole 0.25 MG Tab PO SCH (20:21)
[2017-09-11] MEDS: Acetaminophen 650 MG Tab.ER PO SCH ×4 (04:35→23:24)
[2017-09-11] MEDS: traMADol 50 MG Tab PO SCH ×4 (05:31→23:24)
[2017-09-11] MEDS: Phenazopyridine 100 MG Tab PO PRN (05:46)
[2017-09-11] MEDS: Omeprazole 20 MG Cap.CR PO SCH (07:46)
[2017-09-11] MEDS: Calcium Citrate/Vitamin D3 315 MG-250 Unit Tab PO SCH (08:30)
[2017-09-11] MEDS: Lisinopril 20 MG Tab PO SCH ×2 (08:33→21:13)
[2017-09-11] MEDS: Gabapentin 100 MG Cap PO SCH ×3 (08:34→21:13)
[2017-09-11] MEDS: Hydrochlorothiazide 12.5 MG Cap PO SCH (08:34)
[2017-09-11] MEDS: Sertraline 50 MG Tab PO SCH (08:36)
[2017-09-11] MEDS: Polyethylene Glycol 3350 Powder 17 GM Packet PO SCH (10:21)
[2017-09-11] MEDS ORDERED: rOPINIRole 1 MG Tab PO PRN (11:53)
[2017-09-11] MEDS: cefTRIAXone 1 GM Vial IVPUSH SCH (12:31)
[2017-09-11 12:32] LABS: CHLORIDE,CL 96 mmol/L (98-115); SODIUM,NA 133 mmol/L (136-145)
[2017-09-11] MEDS: Ferrous Sulfate 325 MG Tab PO SCH (12:32)
[2017-09-11] MEDS: Phenazopyridine 100 MG Tab PO SCH ×3 (13:06→21:12)
[2017-09-11] MEDS ORDERED: rOPINIRole 1 MG Tab PO SCH (21:00)
[2017-09-11] MEDS: Latanoprost 0.005% Ophth Soln 2.5 ML Bottle EYEBOTH SCH (21:12)
[2017-09-11] MEDS: Melatonin 3 MG Tab PO SCH (21:13)
[2017-09-12] MEDS: oxyCODONE 5 MG Tab PO PRN (01:44)
[2017-09-12] MEDS: Acetaminophen 650 MG Tab.ER PO SCH ×4 (04:59→22:52)
[2017-09-12] MEDS: traMADol 50 MG Tab PO SCH ×4 (05:00→23:04)
[2017-09-12] MEDS: Omeprazole 20 MG Cap.CR PO SCH (07:30)
[2017-09-12] MEDS: Calcium Citrate/Vitamin D3 315 MG-250 Unit Tab PO SCH (09:10)
[2017-09-12] MEDS: Hydrochlorothiazide 12.5 MG Cap PO SCH (09:12)
[2017-09-12] MEDS: Lisinopril 20 MG Tab PO SCH ×2 (09:12→20:29)
[2017-09-12] MEDS: Gabapentin 100 MG Cap PO SCH ×3 (09:12→20:28)
[2017-09-12] MEDS: Phenazopyridine 100 MG Tab PO SCH ×4 (09:13→20:33)
[2017-09-12] MEDS: Sertraline 50 MG Tab PO SCH (09:14)
[2017-09-12] MEDS: Polyethylene Glycol 3350 Powder 17 GM Packet PO SCH (09:26)
[2017-09-12] MEDS: Baclofen 10 MG Tab PO PRN ×2 (11:17→20:34)
[2017-09-12] MEDS: Ferrous Sulfate 325 MG Tab PO SCH (11:45)
[2017-09-12] MEDS: cefTRIAXone 1 GM Vial IVPUSH SCH (12:03)
[2017-09-12] MEDS ORDERED: Sodium Chloride 0.9% 5 ML Syringe FLUSH PRN (20:00)
[2017-09-12] MEDS: Ketoprofen 12 GM, Menthol 1.8 GM, Trolamine Salicylate/Aloe Vera 46.2 GM TOP PRN ×3 (20:26)
[2017-09-12] MEDS: Latanoprost 0.005% Ophth Soln 2.5 ML Bottle EYEBOTH SCH (20:27)
[2017-09-12] MEDS: Melatonin 3 MG Tab PO SCH (20:28)
[2017-09-12] MEDS: Pramipexole 0.5 MG Tab PO SCH (20:32)
[2017-09-13] MEDS: traMADol 50 MG Tab PO SCH ×4 (05:59→23:46)
[2017-09-13] MEDS: Acetaminophen 650 MG Tab.ER PO SCH ×4 (06:00→23:46)
[2017-09-13] MEDS: Omeprazole 20 MG Cap.CR PO SCH (08:07)
[2017-09-13] MEDS: Phenazopyridine 100 MG Tab PO SCH ×4 (08:07→20:02)
[2017-09-13] MEDS: Gabapentin 100 MG Cap PO SCH ×3 (08:07→20:02)
[2017-09-13] MEDS: Calcium Citrate/Vitamin D3 315 MG-250 Unit Tab PO SCH (08:08)
[2017-09-13] MEDS: Polyethylene Glycol 3350 Powder 17 GM Packet PO SCH (08:08)
[2017-09-13] MEDS: Sertraline 50 MG Tab PO SCH (08:09)
[2017-09-13] MEDS: Hydrochlorothiazide 12.5 MG Cap PO SCH (08:10)
[2017-09-13] MEDS: Lisinopril 20 MG Tab PO SCH (08:10)
[2017-09-13] MEDS: Ketoprofen 12 GM, Menthol 1.8 GM, Trolamine Salicylate/Aloe Vera 46.2 GM TOP PRN ×6 (10:35→17:50)
[2017-09-13] MEDS: cefTRIAXone 1 GM Vial IVPUSH SCH (11:55)
[2017-09-13] MEDS ORDERED: Sodium Chloride 0.9% 500 ML IV SCH (12:30)
[2017-09-13] MEDS: Ferrous Sulfate 325 MG Tab PO SCH (12:59)
[2017-09-13] MEDS ORDERED: Dextrose 5%-0.45% NaCl 1,000 ML IV SCH (14:30)
[2017-09-13] MEDS: Ondansetron 4 MG Tab.DIS PO PRN (18:09)
[2017-09-13] MEDS: Pramipexole 0.5 MG Tab PO SCH (20:02)
[2017-09-13] MEDS: Melatonin 3 MG Tab PO SCH (20:02)
[2017-09-13] MEDS: Latanoprost 0.005% Ophth Soln 2.5 ML Bottle EYEBOTH SCH (20:03)
[2017-09-13] MEDS: oxyCODONE 5 MG Tab PO PRN (21:11)
[2017-09-14] MEDS: oxyCODONE 5 MG Tab PO PRN ×3 (04:29→19:40)
[2017-09-14] MEDS: Acetaminophen 650 MG Tab.ER PO SCH ×4 (04:30→23:01)
[2017-09-14] MEDS: traMADol 50 MG Tab PO SCH ×4 (06:23→23:01)
[2017-09-14] MEDS: Omeprazole 20 MG Cap.CR PO SCH (07:55)
[2017-09-14] MEDS: Sertraline 50 MG Tab PO SCH (08:19)
[2017-09-14] MEDS: Calcium Citrate/Vitamin D3 315 MG-250 Unit Tab PO SCH (08:21)
[2017-09-14] MEDS: Polyethylene Glycol 3350 Powder 17 GM Packet PO SCH (08:21)
[2017-09-14] MEDS: Gabapentin 100 MG Cap PO SCH ×3 (08:21→20:32)
[2017-09-14] MEDS: Phenazopyridine 100 MG Tab PO SCH ×2 (08:21→13:15)
[2017-09-14] MEDS: cefTRIAXone 1 GM Vial IVPUSH SCH (13:17)
[2017-09-14] MEDS: Ferrous Sulfate 325 MG Tab PO SCH (13:17)
[2017-09-14] MEDS ORDERED: Acetaminophen 650 MG Tab.ER PO SCH (19:15)
[2017-09-14] MEDS: Melatonin 3 MG Tab PO SCH (20:31)
[2017-09-14] MEDS: Pramipexole 0.5 MG Tab PO SCH (20:31)
[2017-09-14] MEDS: Latanoprost 0.005% Ophth Soln 2.5 ML Bottle EYEBOTH SCH (20:32)
[2017-09-15] MEDS: oxyCODONE 5 MG Tab PO PRN (02:17)
[2017-09-15] MEDS: Acetaminophen 650 MG Tab.ER PO SCH ×3 (06:28→21:00)
[2017-09-15] MEDS: traMADol 50 MG Tab PO SCH ×4 (06:28→23:05)
[2017-09-15] MEDS: Omeprazole 20 MG Cap.CR PO SCH (08:05)
[2017-09-15] MEDS: Sertraline 50 MG Tab PO SCH (09:36)
[2017-09-15] MEDS: Calcium Citrate/Vitamin D3 315 MG-250 Unit Tab PO SCH (09:37)
[2017-09-15] MEDS: Polyethylene Glycol 3350 Powder 17 GM Packet PO SCH (09:37)
[2017-09-15] MEDS: Gabapentin 100 MG Cap PO SCH ×3 (09:37→20:56)
[2017-09-15] MEDS: Ferrous Sulfate 325 MG Tab PO SCH (11:22)
[2017-09-15] MEDS: Melatonin 3 MG Tab PO SCH (20:55)
[2017-09-15] MEDS: Pramipexole 0.5 MG Tab PO SCH (20:56)
[2017-09-15] MEDS: Latanoprost 0.005% Ophth Soln 2.5 ML Bottle EYEBOTH SCH (20:57)
[2017-09-15] MEDS: Ketoprofen 12 GM, Menthol 1.8 GM, Trolamine Salicylate/Aloe Vera 46.2 GM TOP PRN ×3 (23:06)
[2017-09-16] MEDS: traMADol 50 MG Tab PO SCH ×4 (05:50→23:12)
[2017-09-16] MEDS: Acetaminophen 650 MG Tab.ER PO SCH ×3 (05:50→21:06)
[2017-09-16] MEDS: Omeprazole 20 MG Cap.CR PO SCH (07:52)
[2017-09-16] MEDS: Sertraline 50 MG Tab PO SCH (09:07)
[2017-09-16] MEDS: Calcium Citrate/Vitamin D3 315 MG-250 Unit Tab PO SCH (09:08)
[2017-09-16] MEDS: Gabapentin 100 MG Cap PO SCH ×3 (09:08→21:03)
[2017-09-16] MEDS: Polyethylene Glycol 3350 Powder 17 GM Packet PO SCH (09:08)
[2017-09-16] MEDS: Ferrous Sulfate 325 MG Tab PO SCH (11:43)
[2017-09-16] MEDS: Pramipexole 0.5 MG Tab PO SCH (21:02)
[2017-09-16] MEDS: Melatonin 3 MG Tab PO SCH (21:02)
[2017-09-16] MEDS: Latanoprost 0.005% Ophth Soln 2.5 ML Bottle EYEBOTH SCH (21:04)
[2017-09-16] MEDS: Ketoprofen 12 GM, Menthol 1.8 GM, Trolamine Salicylate/Aloe Vera 46.2 GM TOP PRN ×3 (21:09)
[2017-09-17] MEDS: Acetaminophen 650 MG Tab.ER PO SCH ×3 (05:01→21:57)
[2017-09-17] MEDS: traMADol 50 MG Tab PO SCH ×4 (05:01→23:09)
[2017-09-17] MEDS: Omeprazole 20 MG Cap.CR PO SCH (07:38)
--- NOTE | 2017-09-17 08:17 | PN ---
09/14/2017 PATIENT NAME: RORO RUSSELL SUBJECTIVE: This is 77-year-old patient, who was seen today because of some increased problems of hypotension with this patient. Yesterday, the patient became quite hypotensive while undergoing a physical therapy treatment. We increased her IV fluids at that time. They had noticed that during the last few days, her intake was far less than the output. She was also getting antihypertensives medications including hydrochlorothiazide and lisinopril. These were held temporarily. PAST MEDICAL HISTORY: Positive for recent left total knee replacement by Dr. Barrios in [place] on 08/27/2017. She is here today for swing bed rehabilitation. The patient's past history is also positive for urinary tract infection and urinary retention. She is getting Rocephin 1 g IV daily. PHYSICAL EXAMINATION: VITAL SIGNS: Today on examination, her vital signs are stable. Temperature 98, oxygen saturation is 87, pulse is 84, and blood pressure is 131 to 132. GENERAL: On examination, she is alert. HEAD: Negative. HEART AND LUNGS: Stable. ABDOMEN: Soft. EXTREMITIES: Normal. Hydration is improving quite nicely. PLAN: Discontinue her IV fluids and hold her antihypertensives medication and see how she does later today and tomorrow. Her fluids will have to be replenished gradually. We will continue with her other medications as before. /[id number]/MODL
[2017-09-17] MEDS: Calcium Citrate/Vitamin D3 315 MG-250 Unit Tab PO SCH (08:58)
[2017-09-17] MEDS: Polyethylene Glycol 3350 Powder 17 GM Packet PO SCH (08:59)
[2017-09-17] MEDS: Gabapentin 100 MG Cap PO SCH ×3 (08:59→20:32)
[2017-09-17] MEDS: Sertraline 50 MG Tab PO SCH (09:00)
[2017-09-17] MEDS: Ondansetron 4 MG Tab.DIS PO PRN (10:36)
[2017-09-17] MEDS: Ferrous Sulfate 325 MG Tab PO SCH (12:00)
[2017-09-17] MEDS: Ketoprofen 12 GM, Menthol 1.8 GM, Trolamine Salicylate/Aloe Vera 46.2 GM TOP PRN ×6 (16:32→21:59)
[2017-09-17] MEDS: Pramipexole 0.5 MG Tab PO SCH ×2 (19:32→20:32)
[2017-09-17] MEDS: Melatonin 3 MG Tab PO SCH (20:32)
[2017-09-17] MEDS: Latanoprost 0.005% Ophth Soln 2.5 ML Bottle EYEBOTH SCH (20:33)
[2017-09-18] MEDS: traMADol 50 MG Tab PO SCH ×3 (05:39→17:58)
[2017-09-18] MEDS: Acetaminophen 650 MG Tab.ER PO SCH ×3 (05:40→21:40)
[2017-09-18] MEDS: Omeprazole 20 MG Cap.CR PO SCH (08:21)
[2017-09-18] MEDS: Calcium Citrate/Vitamin D3 315 MG-250 Unit Tab PO SCH (08:21)
[2017-09-18] MEDS: Gabapentin 100 MG Cap PO SCH ×3 (08:22→20:22)
[2017-09-18] MEDS: Sertraline 50 MG Tab PO SCH (08:23)
[2017-09-18] MEDS: Polyethylene Glycol 3350 Powder 17 GM Packet PO SCH (08:24)
[2017-09-18] MEDS: Ferrous Sulfate 325 MG Tab PO SCH (11:49)
[2017-09-18] MEDS: Docusate Sodium 100 MG Cap PO SCH (11:51)
[2017-09-18] MEDS: Ketoprofen 12 GM, Menthol 1.8 GM, Trolamine Salicylate/Aloe Vera 46.2 GM TOP PRN ×3 (15:58)
[2017-09-18] MEDS: oxyCODONE 5 MG Tab PO PRN (16:37)
[2017-09-18] MEDS: Pramipexole 0.5 MG Tab PO SCH (20:21)
[2017-09-18] MEDS: Latanoprost 0.005% Ophth Soln 2.5 ML Bottle EYEBOTH SCH (20:21)
[2017-09-18] MEDS: Melatonin 3 MG Tab PO SCH (20:21)
[2017-09-19] MEDS: traMADol 50 MG Tab PO SCH ×3 (00:50→11:51)
[2017-09-19] MEDS: Acetaminophen 650 MG Tab.ER PO SCH (06:11)
[2017-09-19] MEDS: Omeprazole 20 MG Cap.CR PO SCH (07:44)
[2017-09-19] MEDS: Calcium Citrate/Vitamin D3 315 MG-250 Unit Tab PO SCH (08:34)
[2017-09-19] MEDS: Polyethylene Glycol 3350 Powder 17 GM Packet PO SCH (08:34)
[2017-09-19] MEDS: Sertraline 50 MG Tab PO SCH (08:35)
[2017-09-19] MEDS: Gabapentin 100 MG Cap PO SCH (08:35)
[2017-09-19] MEDS: Docusate Sodium 100 MG Cap PO SCH (08:35)
[2017-09-19] MEDS ORDERED: Lisinopril 20 MG Tab PO SCH (09:00)
[2017-09-19] MEDS: Ferrous Sulfate 325 MG Tab PO SCH (11:51)
--- NOTE | 2017-09-20 10:41 | DISCH ---
The patient was admitted into swing bed status on August 30 and discharged from swing bed today September 19. FINAL DIAGNOSES: Total left knee replacement and weakness and lumbar stenosis. Date of surgery, August 27 for lumbar stenosis, acute on chronic L2-L3, urinary retention improving. HISTORY: This 77-year-old female was initially admitted into senior care here at [facility] for rehabilitation due to status post left total knee replacement. Date of surgery, August 27, 2017, by Dr. Ramirez, orthopedic surgeon in [place]. The patient had been receiving physical therapy here. Family does desire the patient to be discharged so they can care for her at home. Physical Therapy felt like she could benefit from at least two more days due to some weakness. HOSPITAL COURSE: Hospital course went fairly well. She did have severe lumbar pain upon arrival. She does have chronic L2-L3 lumbar stenosis. This was exacerbated by likely the operating table. It took a significant amount of medications including steroids and narcotics to over a [id number] day period to get her more stabilized. She does have a history of neurogenic bladder postoperatively when she had her hip replaced, and so this was treated with bethanechol increases in dosages. She did have improvement in her acute urinary retention. She did require indwelling Hernandez catheters with straight cathing. However, upon discharge the past few days, she has been having improved urinary output. Her pain is much more controlled. She has been working with physical therapy. She did have some weakness at times while doing physical therapy with low blood pressure and her antihypertensives were held. Her narcotics were reduced. Bethanechol was reduced. She did have improvement in her hemodynamic stability. At times, she required IV fluids due to hypotension. PHYSICAL EXAMINATION: VITAL SIGNS: Vital signs on discharge, blood pressure 138/90, antihypertensives will be started back, temperature 98.1, and O2 sats 95% on room air. Lungs are clear to auscultation. CV: Regular rate and rhythm. EXTREMITIES: Her right knee does have a healed scar. No wound dehiscence, much less edema. Urine culture, no growth after two days. She did have elevated BUN and creatinine, thought it was prerenal. It is corrected well with IV fluids. Troponins were normal. Magnesium and calcium were normal. Liver functions, alkaline phosphatase was normal. Hemoglobin 11.2, hematocrit 34.8. Potassium is 4.5. Sodium was corrected gently, it was 122; at one point, increased to 133. MEDICATIONS ADJUSTMENTS/ADDITIONS ON DISCHARGE: Bethanechol 10 mg p.o. t.i.d. (neurogenic bladder) newly added. Hydrocodone/acetaminophen 5/325 one tablet p.o. every 4 hours p.r.n. breakthrough pain. She can continue with her Ultram. Her Xarelto was discontinued. She has completed a full course. Her HCTZ was discontinued due to hypotension. Her lisinopril will be started back on discharge. Her blood pressure has normalized. DISPOSITION: The patient will be discharged from the hospital, slightly prematurely due to physical therapy; however, the patient feels like she can go home; however, she will be receiving physical therapy, occupational therapy, and nursing therapy to develop an in-home therapy program for providing in-home safety assessment and instruction as the patient does have lower extremity weakness and dizziness at times. She does have decreased strength and endurance. She will be homebound due to her decreased strength and endurance and her recent knee replacement mainly due to her unsteady gait and needing assistance upon prolonged standing. She will be receiving Home Health therapy through [facility]. /[id number]/MODL MTDD
== END 2017-09-19 11:55 | disposition home or self-care (01) | DRG 561 ==
LOC: KA.MS 11:30
PROVIDERS: ADMIT Orthopaedic Surgery; ATTEND Family Medicine
DX: Z47.1 Aftercare following joint replacement surgery (principal); Z96.652 Presence of left artificial knee joint; M48.061 Spinal stenosis, lumbar region without neurogenic claudication; R33.9 Retention of urine, unspecified; I95.9 Hypotension, unspecified; N31.9 Neuromuscular dysfunction of bladder, unspecified; H40.9 Unspecified glaucoma; I10 Essential (primary) hypertension; K21.9 Gastro-esophageal reflux disease without esophagitis; M81.0 Age-related osteoporosis without current pathological fracture; F32.9 Major depressive disorder, single episode, unspecified; G25.81 Restless legs syndrome; E78.5 Hyperlipidemia, unspecified; M19.012 Primary osteoarthritis, left shoulder; M19.011 Primary osteoarthritis, right shoulder; K59.00 Constipation, unspecified; D64.9 Anemia, unspecified; G47.00 Insomnia, unspecified; Z79.899 Other long term (current) drug therapy
CPT/HCPCS: 36415; 51702; 51798; 80048; 80053; 81001; 83735; 84484; 85014; 85018; 85027; 87070; 87086; 93005; 97110-GP; 97140-GP; 97150-GP; 97162-GP; 97537-GP; A9270-GY; J0696; J2270; J7040; J7042

== ENCOUNTER 2022-08-21 12:40 | Emergency (ER) | payer MEDICARE, BC ==
[2022-08-21 13:32] LABS: ANION GAP 12.9 mmol/L (5-15); CHLORIDE,CL 101 mmol/L (98-107); SODIUM,NA 139 mmol/L (136-145)
[2022-08-21 13:33] LABS: ESTIMATED GFR 86 mL/min (>=60)
== END 2022-08-21 15:00 | disposition home or self-care (01) ==
LOC: KA.ED 12:40
DX: G45.9 Transient cerebral ischemic attack, unspecified (principal); I10 Essential (primary) hypertension; K21.9 Gastro-esophageal reflux disease without esophagitis; Z88.2 Allergy status to sulfonamides; Z88.8 Allergy status to other drugs, medicaments and biological substances; Z79.899 Other long term (current) drug therapy; Z79.82 Long term (current) use of aspirin
CPT/HCPCS: 70450; 80053; 81001; 84484; 85025; 87086; 93005; 93010; 99284; 99285

== ENCOUNTER 2023-01-30 11:18 | Emergency (ER) | payer MEDICARE, BC ==
[2023-01-30 12:54] LABS: BASOPHILS ABSOLUTE AUTO 0.03 10^3/uL (0.00-0.10); BASOPHILS PERCENT AUTO 0.2 % (0.0-1.0); EOSINOPHILS ABSOLUTE AUTO 0.03 10^3/uL (0.10-0.30); EOSINOPHILS PERCENT AUTO 0.2 % (1.0-3.0); HEMATOCRIT 37.9 % (37.0-47.0); HEMOGLOBIN 12.7 g/dL (12.0-16.0); IMMATURE GRAN ABSOLUTE AUTO 0.05 10^3/uL (0.00-0.50); IMMATURE GRAN PERCENT AUTO 0.4 % (0.0-5.0); LYMPHOCYTES ABSOLUTE AUTO 0.83 10^3/uL (1.00-4.00); LYMPHOCYTES PERCENT AUTO 5.8 % (20.0-40.0); MEAN CORPUSCULAR HEMOGLOBIN 28.9 pg (27.0-31.0); MEAN CORPUSCULAR HGB CONC 33.5 g/dL (32.0-36.0); MEAN CORPUSCULAR VOLUME 86.3 fL (82.0-92.0); MEAN PLATELET VOLUME 10.8 fL (7.4-10.4); MONOCYTES ABSOLUTE AUTO 0.66 10^3/uL (0.10-0.80); MONOCYTES PERCENT AUTO 4.6 % (2.0-8.0); NEUTROPHILS ABSOLUTE AUTO 12.61 10^3/uL (2.50-7.00); NEUTROPHILS PERCENT AUTO 88.8 % (50.0-70.0); PLATELET COUNT,PLT 144 10^3/uL (150-400); RED BLOOD CELL COUNT 4.39 10^6/uL (3.80-5.50); RED CELL DISTRIBUTION WIDTH 12.4 % (11.5-14.5); WHITE BLOOD CELL COUNT,WBC 14.21 10^3/uL (5.00-10.00)
[2023-01-30 13:12] LABS: ALBUMIN 3.43 g/dL (3.40-5.00); ANION GAP 13.3 mmol/L (5-15); BILIRUBIN TOTAL 0.7 mg/dL (0.2-1.0); CALCIUM 8.5 mg/dL (8.7-10.3); CARBON DIOXIDE,CO2 29.4 mmol/L (21.0-32.0); CREATININE 0.91 mg/dL (0.51-1.17); EST CRCL DRUG DOSING (CG) 33.05 mL/min; POTASSIUM,K 3.7 mmol/L (3.5-5.1); PROTEIN TOTAL,TP 6.8 g/dL (6.4-8.2)
[2023-01-30] MEDS: Sodium Chloride 0.9% 1,000 ML IV ONE (13:23)
== END 2023-01-30 13:43 | disposition home or self-care (01) ==
LOC: KA.ED 11:18
DX: N30.00 Acute cystitis without hematuria (principal); R53.1 Weakness; I10 Essential (primary) hypertension; K21.9 Gastro-esophageal reflux disease without esophagitis; Z79.899 Other long term (current) drug therapy; Z88.2 Allergy status to sulfonamides; Z88.8 Allergy status to other drugs, medicaments and biological substances
CPT/HCPCS: 36415; 80053; 82947; 85025; 99284